=== PATIENT | female | born 1985 | race Caucasian/White ===

== ENCOUNTER 2017-06-06 00:24 | Emergency (ER) | payer MEDICAID ==
[~2017-06-06] VITALS: Ht 170.2 cm; Wt 90.0 kg
[~2017-06-06 00:24] MED LIST: HYDR-3307 PO; IBUP200T5 PO
[2017-06-06 02:17] VITALS: BP 129/85
[2017-06-06] MEDS ORDERED: LEVO25TA4 PO (02:17)
[2017-06-06] MEDS ORDERED: CYCL-259 PO (02:17)
[2017-06-06] MEDS ORDERED: birth control PEG (02:17)
[2017-06-06] MEDS ORDERED: TRAM50TA2 PO (02:17)
[2017-06-06] MEDS ORDERED: TRAZ100T15 PO (02:17)
[2017-06-06] MEDS ORDERED: BUPR300T49 PO (02:17)
== END 2017-06-06 04:48 | disposition home or self-care (01) ==
LOC: ED 03:37
DX: S80.02XA Contusion of left knee, initial encounter (principal); S80.01XA Contusion of right knee, initial encounter; E03.9 Hypothyroidism, unspecified; W01.0XXA Fall on same level from slipping, tripping and stumbling without subsequent striking against object, initial encounter; Y93.89 Activity, other specified; Y99.8 Other external cause status; Y92.009 Unspecified place in unspecified non-institutional (private) residence as the place of occurrence of the external cause
CPT/HCPCS: 99284

== ENCOUNTER 2018-05-21 22:23 | Emergency (ER) | payer MEDICAID ==
[~2018-05-21] VITALS: Ht 170.2 cm; Wt 96.6 kg
[~2018-05-21 22:23] MED LIST changes: +BUPR300T49 PO; +CYCL-259 PO; +IBUP-1484 PO; -IBUP200T5 PO; +LEVO25TA4 PO; +TRAM50TA2 PO; +TRAZ100T15 PO; +birth control PEG
[2018-05-21] MEDS ORDERED: PANTOPRAZOLE 40 MG IV IVPush ONE (23:30)
[2018-05-21] MEDS ORDERED: SODIUM CHLORIDE 0.9% 1,000ML IVBOLUS ONE (23:30)
[2018-05-21] MEDS ORDERED: PANTOPRAZOLE 40 MG IV ONE (23:30)
[2018-05-21] MEDS ORDERED: ONDANSETRON 2MG/ML, 2ML ONE (23:30)
[2018-05-21] MEDS ORDERED: SODIUM CHLORIDE FLUSH 10ML SYR IVF ONE (23:30)
[2018-05-21] MEDS ORDERED: ONDANSETRON 2MG/ML, 2ML IVPush ONE (23:30)
[2018-05-21 23:59] LABS: BASOPHILS # (AUTO) 0.03 x10^3/uL (0-0.1); BASOPHILS % (AUTO) 0 % (0-1); EOSINOPHILS # (AUTO) 0.05 x10^3/uL (0-0.4); EOSINOPHILS % (AUTO) 0 % (1-7); LYMPHOCYTES # (AUTO) 2.81 x10^3/uL (1-3.4); LYMPHOCYTES % (AUTO) 20 % (22-44); MD NO; MEAN CORPUSCULAR HEMOGLOBIN 28.7 pg (27.0-34.8); MEAN CORPUSCULAR HGB CONC 33.9 g/dL (32.4-35.8); MEAN CORPUSCULAR VOLUME 84.8 fL (80-100); MEAN PLATELET VOLUME 7.9 fL (7.4-10.4); MONOCYTES # (AUTO) 0.13 x10^3/uL (0.2-0.8); MONOCYTES % (AUTO) 1 % (2-9); NEUTROPHILS # (AUTO) 10.74 x10^3/uL (1.8-6.8); NEUTROPHILS % (AUTO) 78 % (42-75); PLATELET COUNT 449 x10^3/uL (130-400); RED BLOOD COUNT 4.67 x10^6/uL (3.82-5.3); RED CELL DISTRIBUTION WIDTH 13.5 % (9.6-15.2)
[2018-05-22 00:09] LABS: ALANINE AMINOTRANSFERASE 23 U/L (12-78); ALBUMIN 3.9 g/dL (3.4-5.0); ANION GAP 11 mmol/L (5-15); CALCIUM 9.8 mg/dL (8.5-10.1); CHLORIDE 108 mmol/L (98-107); CREATININE 0.76 mg/dL (0.55-1.02); INTERNATIONAL NORMALIZED RATIO 0.89 (0.93-1.1); PROTHROMBIN TIME 9.2 Seconds (9.6-11.5)
[2018-05-22 00:14] LABS: ALKALINE PHOSPHATASE 81 U/L (45-117); BILIRUBIN,TOTAL 0.2 mg/dL (0.2-1.0); TOTAL PROTEIN 8.5 g/dL (6.4-8.2)
[2018-05-22 01:01] VITALS: BP 136/81
== END 2018-05-22 01:03 | disposition home or self-care (01) ==
LOC: ED 23:59
DX: K29.20 Alcoholic gastritis without bleeding (principal); F10.220 Alcohol dependence with intoxication, uncomplicated; E03.9 Hypothyroidism, unspecified
CPT/HCPCS: 36415; 80053; 80307; 83690; 84703; 85025; 85610; 85730; 86677; 86850; 86900; 96374; 96375; 99284; C9113; J2405